=== PATIENT | male | born 1925 | race Caucasian/White ===

== ENCOUNTER 2016-05-14 10:33 | Inpatient (IN) | payer MEDICARE ==
[~2016-05-14] VITALS: Ht 177.8 cm; Wt 67.0 kg
[~2016-05-14 10:33] MED LIST: ADLT ASA LOW81 MG PO; ALPHAGAN P0.1 % OU; ALPRAZOLAM0.5 MG PO; ASPIRIN LOW DOS81 MG PO; FLUARIX QUADRIV1 IN1 IM; FLUARIX QUADRIV1 IN2 IM; HALDOL1 MG PO; LASIX 20 MG TAB20 MG PO; LEVAQUIN750 MG PO; LIDODERM5 % EX; LORTAB 7.57.5 MG PO; LOTRISONE TOP; MAGNESIUM296 ML/BTL PO; MEDDOSEPAK PO; MEGESTROL AC40 MG; MELOXICAM7.5 MG PO; METO25TAB PO; METOPROL TAR25 MG PO; MIRALAX3350 N1 PO; NO HOME MEDS; OMEGA-3 FIS1 PO; PLAVIX75 MG PO; PRESERVISION AREDS PO; PRESERVISION PO; PROVENTIL IN; QUETIAPINE FUMA25 MG PO; RESTORIL15 M1 PO; SENNA/DSS1 TAB PO; SEROQUEL50 MG PO; SIMVASTATIN20 MG PO; TIMOLOL 0.25%5 ML OU; ZYRTEC10 MG PO
[2016-05-14 11:23] LABS: HEMATOCRIT 44.4 % (39.0-50.0); HEMOGLOBIN 15.1 g/dl (14.0-18.0); IMMATURE GRANULOCYTES 0.4 % (0.0-1.0); MEAN CELL VOLUME 97.4 fL CALC (80.0-100.0); MEAN CORPUSCULAR HGB 33.1 pG CALC (26.0-32.0); NEUT# 7.8 thou/uL (1.82-7.42); RED BLOOD COUNT 4.56 mill/uL (4.70-6.10); RED CELL DISTRI WIDTH 13.7 % (11.5-15.5)
[2016-05-14 11:57] LABS: ALBUMIN 3.9 g/dL (3.2-5.0); ALKALINE PHOSPHATASE 114 u/l (38-126); AMYLASE 48 u/l (30-110); ANION GAP 22 (6-22 (CALC)); BILIRUBIN, TOTAL 1.4 mg/dL (0.0-1.4); BUN 44 mg/dL (8-23); BUN/CREATININE RATIO 52 (12-20 (CALC)); CALCIUM 9.1 mg/dL (8.4-10.2); CARBON DIOXIDE 21 mmol/l (22-30); CHLORIDE 114 mmol/l (95-108); CREATININE 0.8 mg/dL (0.7-1.3); GFR > 60 ML/MIN (>=60 (CALC)); GFR FOR AFR.AMER. > 60 ML/MIN (>=60 (CALC)); GLUCOSE 127 mg/dL (82-115); LIPASE 27 u/l (23-300); POTASSIUM 4.3 mmol/l (3.5-5.1); SGOT/AST 49 u/l (19-48); SGPT/ALT 35 u/l (11-66); SODIUM 152 mmol/l (137-146); TOTAL PROTEIN 7.2 g/dL (6.3-8.2)
[2016-05-14 12:10] LABS: MYOGLOBIN 582 ng/mL (0 - 121)
[2016-05-14] MEDS ORDERED: TYLENOL325 MG PO (12:35)
[2016-05-14] MEDS ORDERED: ASPIRIN EC81 MG PO (12:36)
[2016-05-14] MEDS ORDERED: DEPAKOTE250 MG PO (12:41)
[2016-05-14] MEDS ORDERED: MILK OF MAG30 ML/UDC PO (12:41)
[2016-05-14] MEDS ORDERED: PRESERVISION PO (12:42)
[2016-05-14 13:49] LABS: URINE BILIRUBIN - DIPSTICK NEGATIVE (NEGATIVE); URINE BLOOD DIPSTICK NEGATIVE (NEGATIVE); URINE GLUCOSE - DIPSTICK NEGATIVE (NEGATIVE); URINE KETONE 15 mg/dL (NEGATIVE); URINE LEUK ESTERASE NEGATIVE (NEGATIVE); URINE NITRITE - DIPSTICK NEGATIVE (Negative); URINE PROTEIN - DIPSTICK 30 mg/dL (NEG-TRACE)
[2016-05-14 13:52] LABS: URINE CLARITY SLIGHT CLOUDY; URINE COLOR DK. YELLOW
[2016-05-14 13:54] LABS: URINE EPITHELIAL CELLS FEW EPI/hpf (0-FEW); URINE MUCUS MODERATE hpf (NONE-FEW)
[2016-05-14 16:53] VITALS: BP 122/70
[2016-05-14 19:20] VITALS: BP 123/60
[2016-05-14 23:55] VITALS: BP 120/63
[2016-05-15 03:45] VITALS: BP 101/62
[2016-05-15 06:58] LABS: HEMATOCRIT 39.2 % (39.0-50.0); HEMOGLOBIN 12.9 g/dl (14.0-18.0); IMMATURE GRANULOCYTES 0.7 % (0.0-1.0); MEAN CELL VOLUME 99.7 fL CALC (80.0-100.0); MEAN CORPUSCULAR HGB 32.8 pG CALC (26.0-32.0); MEAN CORPUSCULAR HGB CONC 32.9 g/L CALC (32.0-36.0); NEUT# 8.54 thou/uL (1.82-7.42); RED BLOOD COUNT 3.93 mill/uL (4.70-6.10); RED CELL DISTRI WIDTH 13.6 % (11.5-15.5)
[2016-05-15 07:25] LABS: ALBUMIN 2.8 g/dL (3.2-5.0); ALKALINE PHOSPHATASE 89 u/l (38-126); ANION GAP 14 (6-22 (CALC)); BILIRUBIN, TOTAL 1.1 mg/dL (0.0-1.4); BUN 34 mg/dL (8-23); BUN/CREATININE RATIO 50 (12-20 (CALC)); CALCIUM 8.2 mg/dL (8.4-10.2); CARBON DIOXIDE 24 mmol/l (22-30); CHLORIDE 118 mmol/l (95-108); CREATININE 0.7 mg/dL (0.7-1.3); GFR > 60 ML/MIN (>=60 (CALC)); GFR FOR AFR.AMER. > 60 ML/MIN (>=60 (CALC)); GLUCOSE 153 mg/dL (82-115); POTASSIUM 4.1 mmol/l (3.5-5.1); SGOT/AST 48 u/l (19-48); SGPT/ALT 38 u/l (11-66); SODIUM 151 mmol/l (137-146); TOTAL PROTEIN 5.5 g/dL (6.3-8.2)
[2016-05-15 09:29] VITALS: BP 107/52
[2016-05-15 12:06] VITALS: BP 97/50
[2016-05-15 15:49] VITALS: BP 115/41
[2016-05-15 17:01] LABS: ANION GAP 13 (6-22 (CALC)); BUN 26 mg/dL (8-23); BUN/CREATININE RATIO 41 (12-20 (CALC)); CALCIUM 7.9 mg/dL (8.4-10.2); CARBON DIOXIDE 27 mmol/l (22-30); CHLORIDE 113 mmol/l (95-108); CREATININE 0.6 mg/dL (0.7-1.3); GFR > 60 ML/MIN (>=60 (CALC)); GFR FOR AFR.AMER. > 60 ML/MIN (>=60 (CALC)); GLUCOSE 197 mg/dL (82-115); POTASSIUM 3.7 mmol/l (3.5-5.1); SODIUM 148 mmol/l (137-146)
== END 2016-05-15 21:25 | disposition expired | DRG 641 ==
LOC: ED 10:33 → ED-I 14:00 → ED 14:21 → MS2 14:22
PROVIDERS: Emergency Medicine; ADMIT Internal Medicine Geriatric Medicine; ATTEND Internal Medicine Geriatric Medicine
PROC: 0T9B70Z Drainage of Bladder with Drainage Device, Via Natural or Artificial Opening (ICD-10-PCS; principal; 2016-05-14)
DX: E86.0 Dehydration (principal); E87.0 Hyperosmolality and hypernatremia; I11.0 Hypertensive heart disease with heart failure; I50.9 Heart failure, unspecified; G30.9 Alzheimer's disease, unspecified; F02.81 Dementia in other diseases classified elsewhere, unspecified severity, with behavioral disturbance; F23 Brief psychotic disorder; I25.10 Atherosclerotic heart disease of native coronary artery without angina pectoris; M19.90 Unspecified osteoarthritis, unspecified site; E78.5 Hyperlipidemia, unspecified; J44.9 Chronic obstructive pulmonary disease, unspecified; R19.7 Diarrhea, unspecified; I25.2 Old myocardial infarction; Z66 Do not resuscitate